=== PATIENT | male | born 1995 | race Caucasian/White ===

== ENCOUNTER 2024-05-05 18:18 | Emergency (ER) | payer BC, SELFPAY ==
--- NOTE | ~2024-05-05 | XR_ITS ---
EXAMINATION: XR pelvis 1-2V DATE: 05/05/2024 19:20 INDICATION: Left hip pain. TECHNIQUE: An anteroposterior view of the pelvis was obtained. COMPARISON: None. FINDINGS: Alignment is normal. No fracture. There is mild osteoarthritis of the hips. IMPRESSION: 1. Mild osteoarthritis of the hips. Reviewed, dictated and finalized at location A. ER BREWERY
[2024-05-05 18:33] VITALS: BP 124/81; PULSE 70; RESP 15; TEMP 36.5; O2SAT 96
--- NOTE | 2024-05-05 19:06 | ED.GENADULT ---
HPI - General Adult General Chief complaint: Extremity Problem,Nontraumatic Stated complaint: Neck Pain/Right Shoulder/Left Hip Pain/Left Ankle Time Seen by Provider: 05/05/24 18:55 Source: patient, RN notes reviewed and old records reviewed Mode of arrival: ambulatory Limitations: no limitations History of Present Illness HPI narrative: 28 year old male presents to [facility] care with multiple complaints. He reports that he has had left hip burning pain for the past few weeks with no known injury. He states that he was seen in May for a know on his left shoulder and was told that it was arthritis and was given a steroid shot, Naproxen, Medrol dose pack and also Robaxin for his discomfort. Patient reports that arthritis runs in his family. He states that he has constant left hip pain and pain to his ankles with no known injury. Wants to know what else he can do to help his discomfort.Patient reports that he has taken some Tylenol arthritis for his discomfort MD complaint: left hip pain, bilateral ankle discomfort Onset (ago): month(s) (left hip for several weeks) Severity scale (1-10): 8 Pain Consistency: constant Treatments prior to arrival: other (has taken Tylenol arthritis for his discomfort) Related Data Allergies Allergy/AdvReac Type Severity Reaction Status Date / Time No Known Allergies Allergy Verified 05/05/24 18:34 Review of Systems Review of Systems: CONSTITUTIONAL: Denies fever, chills, or sweats. EYES: Denies visual changes, redness, or discharge. ENT: Denies rhinorrhea, congestion, sore throat, or otalgia. CARDIOVASCULAR: Denies chest pain, palpitations, or edema. RESPIRATORY: Denies cough or dyspnea. GASTROINTESTINAL: Denies abdominal pain, nausea, vomiting, or diarrhea. GENITOURINARY: Denies dysuria or hematuria. SKIN: Denies rash or itching. MUSCULOSKELETAL: Denies back pain, positive for left hip pain and burning and bilateral ankle pain without injury , or myalgia. NEUROLOGIC: Denies headache, numbness, or weakness. PSYCHIATRIC: Denies anxiety or depression. All systems reviewed & are unremarkable except as noted in HPI and below PMFSH Past Medical History Medical History (Updated 05/08/24 @ 12:50 by Keira Morejon NP) Arthritis of left shoulder Family History Family History (Updated 05/08/24 @ 12:43 by Keira Morejon NP) Other Arthritis Social History Social History (Updated 05/08/24 @ 12:43 by Keira Morejon NP) Smoking status: Current every day smoker Tobacco type: e-cigarettes/vaping Alcohol intake: current Alcohol use details: social Living arrangements: with family Gender identity (if verbalized by the patient): Male Comments At time of signature, agree with nursing past medical, surgical, social and family history. There is no relevant family history pertinent to the presenting complaint Exam Narrative: GENERAL: Well-appearing, well-nourished, and in no acute distress. HEAD: Normocephalic, atraumatic. EYES: PERRLA and EOMI. ENT: Nares clear, no rhinorrhea or epistaxis. Mucous membranes moist. NECK: Supple.no lymphadenopathy CHEST: Clear to auscultation. No respiratory distress.SAO2 96% on room air HEART: Regular rate and rhythm. No murmur heard. Normal peripheral pulses. ABDOMEN: Soft, nontender, nondistended, normal active bowel sounds. EXTREMITIES: Normal range of motion. No edema. Reports burning type of pain to left hip with no injury, gait steady, reports also bilateral ankle pain and previous problems with left shoulder with arthritis diagnosis, Circulation and sensation intact bilateral pedal pulses no tingling or numbness of lower extremities. SKIN: Warm, dry, no rash. NEURO: No focal deficits. Alert and oriented x3. Course Course Emergency Course: Patient is aware of diagnosis, understands and agrees to treatment plan.? Anticipatory guidance given.? Patient agrees to follow-up as directed and is aware of reasons to seek care at the emergency department. Portions of this record may have been created with voice recognition software Level of Care: Express Care Visit Vital Signs Vital signs: Vital Signs Temperature 36.5 C 05/05/24 18:33 Pulse Rate 70 05/05/24 18:33 Respiratory Rate 15 05/05/24 18:33 Blood Pressure 124/81 05/05/24 18:33 Pulse Oximetry 96 05/05/24 18:33 Oxygen Delivery Room Air 05/05/24 18:33 Temperature 36.5 C 05/05/24 18:33 Pulse Rate 70 05/05/24 18:33 Respiratory Rate 15 05/05/24 18:33 Blood Pressure 124/81 12/12/24 18:33 Pulse Oximetry 96 05/05/24 18:33 Oxygen Delivery Room Air 05/05/24 18:33 Reviewed Medical Decision Making MDM Narrative Medical decision making narrative: Exam findings and imaging show no acute concerns or changes; patient is non-toxic appearing and is in no distress.? Patient is appropriate for outpatient treatment and follow-up Differential Diagnosis Differential Diagnosis: left hip pain, multiple joint pain complaints, osteoarthritis Medical Records Medical records reviewed: Yes I reviewed the external patient's medical records. Vital Signs Vital Signs: Vital Signs Temperature 36.5 C 05/05/24 18:33 Pulse Rate 70 05/05/24 18:33 Respiratory Rate 15 05/05/24 18:33 Blood Pressure 124/81 05/05/24 18:33 Pulse Oximetry 96 05/05/24 18:33 Oxygen Delivery Room Air 05/05/24 18:33 Temperature 36.5 C 05/05/24 18:33 Pulse Rate 70 05/05/24 18:33 Respiratory Rate 15 05/05/24 18:33 Blood Pressure 124/81 05/05/24 18:33 Pulse Oximetry 96 05/05/24 18:33 Oxygen Delivery Room Air 05/05/24 18:33 reviewed Imaging Data Attestation: I personally reviewed and interpreted this imaging study as follows: My impression: mild osteoarthritis of hips, no fracture Radiologist's impression: Launch?Image [place] [id number] XRay Report Signed Patient: German Martinez : 1995 MR#: [id number] Age: 28 Acct:[id number] Loc: [facility] ADM Date: 05/05/24Attending Dr: Ordering Physician: Keira Morejon APRN Date of Service: 05/05/24 Procedure(s): XR pelvis 1-2V Accession Number(s): [id number] cc: POLLUTION CONTROL CHEMIST PHYSICIAN; Keira Morejon APRN~ EXAMINATION: XR pelvis 1-2V DATE: 05/05/2024 19:20 INDICATION: Left hip pain. TECHNIQUE: An anteroposterior view of the pelvis was obtained. COMPARISON: None. FINDINGS: Alignment is normal. No fracture. There is mild osteoarthritis of the hips. IMPRESSION: 1. Mild osteoarthritis of the hips. Reviewed, dictated and finalized at location A. UNICATIONS TOWER CLIMBER Dictated By: Eladio Rao MD 05/05/241927 Signed By: <Electronically signed by Eladio Rao MD in OV> 05/05/241928 Critical Care Time Critical Care Time Critical Care Time: No Discharge Plan Discharge Clinical Impression: Osteoarthritis, hip, bilateral Qualifiers: Osteoarthritis type: primary Qualified Code(s): M16.0 - Bilateral primary osteoarthritis of hip Patient Disposition: Home, Self-Care Condition: Stable Instructions: Antibiotic Form, Osteoarthritis (ED) Additional Instructions: Tylenol for lesser pain Ibuprofen regularly for the next 2-3 days for the inflammation Follow-up with orthopedic surgeon if continued pain Follow-up with PCP if further problems or concerns Ice to the area 20-30 minutes 4-6 times a day Elevate above heart Information in regards to PCP's in area given Meloxicam as ordered, can not take medications like Aleve or Ibuprofen with this medication, may take arthritis strength Tylenol one tab every 8 hours May use local topical medications like Biofreeze or Bengay with lidocaine to areas of pain Patient Language: Indonesian Prescriptions: New meloxicam 15 mg tablet 15 mg PO DAILY Qty: 30 0RF Rx Instructions: one tab daily with food Follow-up/Referrals: PHYSICIAN,POLLUTION CONTROL CHEMIST [Primary Care Provider] - Time of Disposition: 19:56 Quality [place] Coma Scale Eyes: Open Verbal: Oriented and Alert Motor: Follows Commands [place] Coma Total Score: 15
== END 2024-05-05 20:03 | disposition home or self-care (01) ==
PROVIDERS: Emergency Provider Registered Nurse
DX: M16.0 Bilateral primary osteoarthritis of hip (principal); F17.290 Nicotine dependence, other tobacco product, uncomplicated; M19.012 Primary osteoarthritis, left shoulder
CPT/HCPCS: 72170; 99203; G0463